=== PATIENT | male | born 1965 | race Caucasian/White ===

== ENCOUNTER 2017-06-27 13:28 | Emergency (ER) | payer OTHER ==
[2017-06-27 14:42] LABS: BASO % 1.2 % (0.0-2.0); EOS % 1.5 % (0.0-4.0); HEMOGLOBIN 14.7 g/dL (12.0-18.0); LYMPH # 1.2 K/uL (1.0-4.3); LYMPH % 36.7 % (20.0-40.0); MEAN CELL VOLUME 88.2 fL (80.0-94.0); MEAN CORPUSCULAR HEMOGLOBIN 30.5 pg (27.0-31.0); MEAN CORPUSCULAR HGB CONC 34.6 g/dL (33.0-37.0); MEAN PLATELET VOLUME 8.9 fL (7.2-11.7); MONO # 0.4 K/uL (0.0-0.8); MONO % 12.3 % (0.0-10.0); NEUT # 1.5 K/uL (1.8-7.0); NEUT % 48.3 % (50.0-75.0); RBC 4.81 Mil/uL (4.40-5.90); RED CELL DISTRIBUTION WIDTH 13.5 % (11.5-14.5); WHITE BLOOD COUNT 3.2 K/uL (4.8-10.8)
[2017-06-27 14:59] LABS: ALB/GLOB RATIO 1.1 (1.0-2.1); ALT/SGPT 46 U/L (21-72); AST/SGOT 32 U/L (17-59); BLOOD UREA NITROGEN 17 mg/dL (9-20); CALCIUM 9.2 mg/dl (8.6-10.4); GFR AFRICAN-AMERICAN > 60; GFR NON-AFRICAN AMERICAN > 60
--- NOTE | 2017-06-27 15:20 | C.PDOC ---
History Of Present Illness 52 year old male, with PMHx of diabetes, sent to ED from PMD office for evaluation of abnormal EKG at office. Pt denies chest pain, shortness of breath , cough, headache, dizziness, or any complaints at this time. On arrival to ED, EKG demonstrates J point elevation, no ST elevation. Chief Complaint (Nursing): Chest Pain History Per: Patient History/Exam Limitations: no limitations Past Medical History Reviewed: Historical Data, Nursing Documentation, Vital Signs Vital Signs: Last Vital Signs Temp 98.2 F 06/27/17 16:09 Pulse 75 06/27/17 16:09 Resp 18 06/27/17 16:09 BP 128/88 06/27/17 16:09 Pulse Ox 100 06/27/17 16:09 - Medical History PMH: Diabetes Surgical History: Cholecystectomy Family History: States: Unknown Family Hx - Social History Hx Alcohol Use: No Hx Substance Use: No - Immunization History Hx Tetanus Toxoid Vaccination: No Hx Influenza Vaccination: No Hx Pneumococcal Vaccination: No Review Of Systems Except As Marked, All Systems Reviewed And Found Negative. Constitutional: Negative for: Fever, Chills Cardiovascular: Negative for: Chest Pain, Palpitations Respiratory: Negative for: Cough, Shortness of Breath Physical Exam - Physical Exam Appears: Non-toxic, No Acute Distress Skin: Normal Color, Warm, Dry Head: Atraumatic, Normacephalic Eye(s): bilateral: Normal Inspection Oral Mucosa: Moist Neck: Normal ROM, Supple Chest: Symmetrical Cardiovascular: Rhythm Regular, No Murmur Respiratory: Normal Breath Sounds, No Rales, No Rhonchi, No Wheezing Gastrointestinal/Abdominal: Soft, No Tenderness Extremity: Normal ROM, No Pedal Edema Neurological/Psych: Oriented x3, Normal Speech ED Course And Treatment - Laboratory Results Result Diagrams: 06/27/17 14:38 06/27/17 14:38 O2 Sat by Pulse Oximetry: 98 (RA) Pulse Ox Interpretation: Normal Progress Note: CXR, EKG, blood work ordered and reviewed. Disposition - Disposition Disposition: HOME/ ROUTINE Disposition Time: 15:18 Condition: GOOD Instructions: Normal Exam (ED) Forms: [employer] ([place]) - Clinical Impression Clinical Impression: Encounter for medical screening examination - Scribe Statement The provider has reviewed the documentation as recorded by the Scribe Dru Clark All medical record entries made by the Scribe were at my direction and personally dictated by me. I have reviewed the chart and agree that the record accurately reflects my personal performance of the history, physical exam, medical decision making, and the department course for this patient. I have also personally directed, reviewed, and agree with the discharge instructions and disposition.
--- NOTE | 2017-06-27 15:21 | RAD ---
PROCEDURE: CHEST RADIOGRAPH, 1 VIEW HISTORY: SOB COMPARISON: None available. FINDINGS: LUNGS: Clear. PLEURA: No pneumothorax or pleural fluid seen. CARDIOVASCULAR: Normal. OSSEOUS STRUCTURES: No significant abnormalities. VISUALIZED UPPER ABDOMEN: Normal. OTHER FINDINGS: None. IMPRESSION: No active disease.
[2017-06-27 16:10] VITALS: BP 128/88; PULSE 75; RESP 18; TEMP 98.2
[2017-06-27 18:05] VITALS: O2SAT 98
== END 2017-06-27 16:10 | disposition home or self-care (01) ==
LOC: C.ER 13:28
DX: Z04.8 Encounter for examination and observation for other specified reasons (principal); E11.9 Type 2 diabetes mellitus without complications